=== PATIENT | male | born 1990 | race Hispanic/Latino ===

== ENCOUNTER → 2023-02-18 12:56 | Outpatient (CLI) | payer OTHER, SELFPAY ==
--- NOTE | 2023-02-18 | DI.RAD.S_ITS ---
PROCEDURE: XR ANKLE LT MIN 3V INDICATIONS: ANKLE FX TECHNIQUE: 3 views of the ankle were acquired. COMPARISON: None. FINDINGS: Bones: No acute fractures or dislocations. Lateral plate and screw conduct of the fibula. The syndesmotic screws are partially removed with the tibial components still intact. There is very mild lucency surrounding the 2nd most distal screw. Ankle mortise is normally aligned. No suspicious bony lesions. Mild plantar calcaneal enthesophyte. Soft tissues: No tibiotalar joint effusion. Achilles tendon appears normal. IMPRESSION: 1. No acute osseous abnormalities. 2. Plate and screw fixation of a prior fibular fracture. Partial removal of the syndesmotic screws. There is very mild lucency surrounding the 2nd most distal screw, loosening is not excluded. Attention on follow-up. The other screws are normal in appearance without surrounding lucency. Dictated by: Panchito Modi M.D. on 02/18/2023 at 14:14 Approved by: Panchito Modi M.D. on 02/18/2023 at 14:17
== END ==
PROVIDERS: Referring Provider Chiropractor; Visit Provider Chiropractor
DX: S82.92XA Unspecified fracture of left lower leg, initial encounter for closed fracture (principal); Z98.890 Other specified postprocedural states
CPT/HCPCS: 73610